=== PATIENT | female | born 1995 | race Caucasian/White ===

== ENCOUNTER 2023-09-11 19:14 | Emergency (ER) | payer BC, SELFPAY ==
--- NOTE | 2023-09-11 19:31 | ED_ITS ---
HPI - General Adult General Chief complaint: General Medical Stated complaint: Control? Time Seen by Provider: 09/11/23 19:29 History of Present Illness HPI narrative: Patient is a 28-year-old female who presents emergency department Requesting refill on her control. Reports seeing a new PCP in May 2023 did not refill her OCP was going to refer her to clearance center manager. She previously had 7 refills this 07/14/2023, last filled 06/17/2023 for three-month supply. When she presented to the pharmacy she was advised that she no longer has any refills. She has not a cigarette smoker, does not have a history of hypertension, no history of VTE, no CAD, no CVA, no personal history of cancer. Reports history of migraines without aura. Related Data Previous Rx's Medication Instructions Recorded desogestrel-ethinyl estradiol 0.1 1 tab PO DAILY #84 tabs 09/11/23 mg/0.125 mg/0.15 mg-25 mcg tablet Allergies Allergy/AdvReac Type Severity Reaction Status Date / Time No Known Allergies Allergy Verified 09/11/23 19:27 Review of Systems Review of Systems: Yes all other systems are reviewed and are negative PMFSH Past Medical History Attestation statement: The following information was validated with the patient. Source: old records reviewed Physical Exam ED Vital Signs: Vital Signs - 24 hr 09/11/23 19:32 Temperature 98.9 F Pulse Rate 73 Respiratory Rate 14 Blood Pressure 127/74 Pulse Oximetry 99 Oxygen Delivery Method Room Air BMI result Body Mass Index 25.2 Appearance: Alert.?Oriented to person, place and time. No acute distress.?Normal affect. Neck: Normal inspection.? Neck supple.?? CVS: Heart sounds normal. Normal heart rate and rhythm.? Pulses normal.?? Respiratory: No respiratory distress.? Lung sounds clear to auscultation bilaterally?? Abdomen: Soft and non-tender. Normoactive bowel sounds. ? Skin: Skin warm and dry.? Normal skin color.??? Extremities: No lower extremity edema.? No calf ttp? Neuro: Moves all extremities spontaneously. Sensation intact bilaterally. Ambulates with normal steady gait. Medical Decision Making Medical Decision Making MDM Narrative: Patient is a 28-year-old female who presents emergency department requesting prescription refill for her oral contraceptive. No past medical history that would indicate contraindication to use of OCP. testing is negative today. Sent prescription for previously prescribed OCP to pharmacy. Advised outpatient follow-up with PCP/clearance center manager for further prescribing. All questions answered. Advised on precautions and when to seek medical care with use of oral contraceptives. All questions answered. Differential Diagnosis Differential Diagnoses: The differential diagnosis associated with the presentation includes (Screening for contraceptive usage, , prescription refill) Lab Data MDM Lab Attestation statement: I reviewed the patient's lab results. ( negative) Labs: Lab Results 09/11/23 Range/Units 19:42 Urine Test NEGATIVE (NEGATIVE) Prescription Management I considered prescription management with: Other (See narrative above) Discharge Plan Discharge Clinical Impression: Encounter for prescription of oral contraceptives Patient Disposition: Home, Self-Care Instructions: Oral Contraceptives (By mouth) Prescriptions: New desogestrel-ethinyl estradiol 0.1/.125/.15-25 mg-mcg tablet 1 tab PO DAILY Qty: 84 0RF Referrals: Physician,Gautam J [Primary Care Provider] -
[2023-09-11 19:32] VITALS: BP 127/74; PULSE 73; RESP 14; TEMP 37.2; O2SAT 99; BMI 25.2
[2023-09-11 19:49] LABS: UPreg QC Valid YES; Urine Pregnancy NEGATIVE (NEGATIVE)
== END 2023-09-11 20:13 | disposition home or self-care (01) ==
PROVIDERS: Nurse Practitioner Family; Emergency Provider Emergency Medicine
DX: Z76.0 Encounter for issue of repeat prescription (principal)
CPT/HCPCS: 81025; 99283; 99284